=== PATIENT | female | born 1960 | race Two or more races ===

== ENCOUNTER 2022-10-18 11:33 | Emergency (ER) | payer OTHER ==
[~2022-10-18] VITALS: Ht 167.6 cm; Wt 95.3 kg
[2022-10-18] MEDS ORDERED: ATORVASTATIN CA20 MG PO (12:10)
[2022-10-18] MEDS ORDERED: ECOTRIN81 MG (12:11)
[2022-10-18] MEDS ORDERED: PAXIL20 MG (12:12)
== END 2022-10-18 15:08 | disposition home or self-care (01) ==
LOC: ER 11:33
PROVIDERS: General Practice
DX: R07.89 Other chest pain (principal)

== ENCOUNTER 2023-03-24 14:20 | Emergency (ER) | payer OTHER ==
[~2023-03-24] VITALS: Ht 167.6 cm; Wt 104.3 kg
[~2023-03-24 14:20] MED LIST: ATORVASTATIN CA20 MG PO; ECOTRIN81 MG; PAXIL20 MG
== END 2023-03-24 16:56 ==
LOC: ER 14:20
DX: R07.89 Other chest pain (principal); F43.9 Reaction to severe stress, unspecified